=== PATIENT | female | born 1975 | race Caucasian/White ===

== ENCOUNTER 2024-04-10 00:51 | Observation (INO) ==
[2024-04-10 01:07] VITALS: TEMP 98.2
[2024-04-10] MEDS: FAMOTIDINE 20MG IV PUSH 20 MG/5 ML SYR IV STA (01:14)
[2024-04-10] MEDS: DICYCLOMINE HCL 10 MG/ML 2 ML AMP/VIAL IM ONE (01:15)
[2024-04-10] MEDS: ONDANSETRON INJ 2 MG/ML 2 ML VIAL IV STA (01:15)
[2024-04-10] MEDS: SODIUM CHLORIDE 0.9% 1,000 ML IV STA (01:15)
--- NOTE | 2024-04-10 01:17 | Emergency Department Note ---
History of Present Illness General Chief complaint: Abdominal Pain Stated complaint: AB PAIN Time Seen by Provider: 04/10/24 00:55 History of Present Illness Maximum Pain Intensity: 10 This 48-year-old female who does not routinely see the family doctor presents the ER complaint abdominal pain and intermittent tingling's for the past several days. She has a history of alcoholism. Last drink was Sunday. Since then she has had nausea and vomiting and not feeling well. Patient denies chest pain, dyspnea, fevers, cough, congestion. Patient has been to rehab in the past. No history of withdrawal seizures. No delusions or hallucinations. Home Medications Medication Instructions Recorded Confirmed Type doxycycline monohydrate 100 mg 100 mg PO UD 04/10/24 04/10/24 History capsule metronidazole 0.75 % topical cream 1 applic topical BID 04/10/24 04/10/24 History propranolol 20 mg tablet 20 mg PO TID PRN Anxiety 04/10/24 04/10/24 History zolpidem 12.5 mg tablet,extended 12.5 mg PO HS PRN Insomnia 04/10/24 04/10/24 History release,multiphase Allergies Allergy/AdvReac Type Severity Reaction Status Date / Time No Known Allergies Allergy Unverified 04/10/24 03:28 Past Med/Surg History Problem List (Updated 04/10/24 @ 04:45 by Corina Roldan PA-C) Hepatic steatosis (Acute) Coagulopathy Alcohol abuse Abnormal LFTs Abdominal pain, acute (Acute) Hypokalemia (Acute) Hypomagnesemia (Acute) Social History Smoking Status: Former smoker Hx Alcohol Use: Yes Hx Substance Use: No Preferred Language: Armenian Communication Ability: Effective Finisher Hand Required: No Beliefs That Will Affect Care: None Current Living Situation: Alone Feels Safe at Home: Yes Safety Concerns: Feels Safe At This Time Review of Systems A total of 10 systems reviewed and were otherwise negative Physical Exam Vital Signs Vital Signs - 24 hr 04/10/24 01:05 04/10/24 01:05 04/10/24 01:07 Temperature 36.8 C Temperature Source Oral Pulse Rate 96 H 102 H Respiratory Rate 17 Respiratory Effort / Characteristics Non-Labored Spontaneous Respiratory Depth Normal Blood Pressure 134/101 H Blood Pressure Mean 112 Pulse Oximetry 97 98 Oxygen Delivery Method Room Air Room Air Sepsis Recent Fever Within 48 Hours No Sepsis New/Unexplained Change in Mental Status No Sepsis Action Taken by Nursing No Action Required VITALS: Vitals are noted on the nurse's note and reviewed by myself. Vital signs stable. GENERAL: Pleasant patient, in no acute distress, nondiaphoretic, well-developed well-nourished. SKIN: Capillary reflex less than 2 seconds. HEENT: Normocephalic. PERRLA. Mild icterus, EOMI. Nares patent. Mucous membranes moist. Neck is supple without nuchal rigidity. HEART: Regular rate and rhythm LUNGS: Clear to auscultation bilaterally without wheezes, rales or rhonchi. No retractions or accessory muscle use. ABDOMEN: Positive bowel sounds x 4. Normal tympanic percussion. Soft, tender to palpation mid abdomen, without masses or organomegaly. Heredia sign negative. No guarding or rebound tenderness. no CVA tenderness MUSCULOSKELETAL: No gross musculoskeletal defects. NEURO: Patient was alert and oriented to person place and time. No focal neurological deficits. Course Administered Medications Discontinued Medications Dicyclomine HCl (Dicyclomine Hcl 10 Mg/Ml 2 Ml Amp/Vial) 20 mg IM NOW ONE Stop: 04/10/24 01:07 Last Admin: 04/10/24 01:15 Dose: 20 mg Documented By: JUSTIN Sodium Chloride (Nss) 1,000 mls @ 999 mls/hr IV .Q1H1M STA Stop: 04/10/24 02:06 Last Infusion: 04/10/24 02:17 Dose: Infused Documented By: Admin: 04/10/24 01:15 Dose: 999 mls/hr Documented By: JUSTIN Famotidine (Pepcid 20mg Iv Push) 20 mg in 5 mls @ 2.5 mls/min IV NOW STA Stop: 04/10/24 01:07 Last Admin: 04/10/24 01:14 Dose: 2.5 mls/min Documented By: JUSTIN Multivitamins 10 ml/ Thiamine HCl 100 mg/ Folic Acid 1 mg/Sodium Chloride 1,011.2 mls @ 500 mls/hr IV .Q2H2M ONE Stop: 04/10/24 03:25 Last Admin: 04/10/24 02:50 Dose: 500 mls/hr Documented By: JUSTIN Magnesium Sulfate/Dextrose (Magnesium Sulfate / D5w) 1 gm in 100 mls @ 100 mls/hr IV Q1H TIM Stop: 04/10/24 03:47 Last Infusion: 04/10/24 04:18 Dose: Infused Documented By: Admin: 04/10/24 03:14 Dose: 100 mls/hr Documented By: Infusion: 04/10/24 03:12 Dose: Infused Documented By: Admin: 04/10/24 02:12 Dose: 100 mls/hr Documented By: UJSTIN Ioversol (Optiray 320 100ml) 100 ml IV ONCE ONE Stop: 04/10/24 02:06 Last Admin: 04/10/24 02:06 Dose: 93 ml Documented By: CRYS Miscellaneous Information (Patient's Allergy Info Needs Entered) 1 each N/A NOW STA Stop: 04/10/24 03:17 Last Admin: 04/10/24 03:29 Dose: Not Given Documented By: JUSTIN Ondansetron HCl (Ondansetron Inj 2 Mg/Ml 2 Ml Vial) 4 mg IV NOW STA Stop: 04/10/24 01:07 Last Admin: 04/10/24 01:15 Dose: 4 mg Documented By: JUSTIN Potassium Chloride (Potassium Chloride Crtab 20 Meq Tabcr) 40 meq PO NOW STA Stop: 04/10/24 01:48 Last Admin: 04/10/24 02:14 Dose: 40 meq Documented By: JUSTIN Medical Decision Making Medical Records Attestation: I reviewed the patient's medical records. Home Medications Current Medication List: was personally reviewed by me Laboratory Data Attestation: I reviewed the patient's lab results. 04/10/24 01:00 04/10/24 01:00 Lab Results 04/10/24 04/10/24 Range/Units 01:00 03:02 WBC 16.96 H (4.8-10.8) K/ul RBC 3.72 L (4.20-5.40) M/uL Hgb 13.3 (12.0-16.0) g/dl Hct 37.9 (37.0-47.0) % MCV 101.9 H (80.0-100.0) fL MCH 35.8 H (25.0-34.0) pg MCHC 35.1 (32.0-36.0) g/dL RDW Std Deviation 55.6 H (36.4-46.3) fL RDW Coeff of Cristel 14.9 H (11.5-14.5) % Plt Count 255 (130-400) K/uL MPV 10.5 (9.4-12.4) fL Immature Gran % (Auto) 0.5 % Neut % (Auto) 79.7 % Lymph % (Auto) 11.9 % [place] % (Auto) 6.3 % Eos % (Auto) 1.1 % Baso % (Auto) 0.5 % Neut # (Auto) 13.51 H (1.40-6.50) K/uL Lymph # (Auto) 2.02 (1.20-3.40) K/uL [place] # (Auto) 1.07 H (0.11-0.59) K/uL Eos # (Auto) 0.19 (0.00-0.50) K/uL Baso # (Auto) 0.08 (0.00-0.20) K/uL Immature Gran # (Auto) 0.09 (0.01-0.20) K/uL PT 13.5 H (9.0-12.0) Seconds INR 1.3 H (0.9-1.1) APTT 27 (21-31) Seconds PTT Ratio 1.0 Sodium 137 (136-145) mmol/L Potassium 3.3 L (3.5-5.1) mmol/L Chloride 94 L (98-107) mmol/L Carbon Dioxide 30 (21-32) mmol/L Anion Gap 13 H (3-11) BUN 4 L (6-23) mg/dl Creatinine 0.77 (0.6-1.2) mg/dl Est Cr Clr Drug Dosing 86.9 ml/min Est GFR ( Amer) 105.8 ml/min Est GFR (Non-Af Amer) 91.3 ml/min BUN/Creatinine Ratio 5.2 L (10-20) Glucose 102 H (70-99(Fasting)) mg/dl Calcium 8.4 L (8.6-10.3) mg/dl Magnesium 0.8 L* (1.7-2.4) mg/dl Total Bilirubin 4.1 H (0.2-1.0) mg/dl AST 156 H (13-39) U/L ALT 48 (7-52) U/L Alkaline Phosphatase 194 H (34-104) U/L Total Creatine Kinase 60 (26-192) U/L Troponin I High Sens 9.6 (0-14) pg/ml Total Protein 7.8 (6.0-8.3) gm/dl Albumin 3.6 (3.4-5.0) gm/dl Globulin 4.2 H (2.5-4.0) gm/dl Albumin/Globulin Ratio 0.9 (0.9-2) Lipase 5 L (11-82) U/L TSH 3.651 (0.300-4.500) uIu/ml HCG, Qual Negative (Negative) Urine Color Dark Yellow Urine Appearance Clear (Clear) Urine pH 7.5 (4.5-7.5) Ur Specific [place] 1.041 H (1.000-1.030) Urine Protein Negative (Negative) Urine Glucose (UA) Negative (Negative) Urine Ketones Negative (Negative) Urine Blood Negative (Negative) Urine Nitrite Negative (Negative) Urine Bilirubin 1+ H (Negative) Urine Urobilinogen Positive H (Negative) Ur Leukocyte Esterase Trace H (Negative) Urine WBC (Auto) 0-5 (0-5) /hpf Urine RBC (Auto) 0-2 (0-2) /hpf U Hyaline Cast (Auto) 0-2 (0-2) /lpf U Epithel Cells (Auto) 3-5 H (0-2) /hpf Urine Bacteria (Auto) None Seen (None Seen) Ethyl Alcohol mg/dL < 10.0 (<10.0) mg/dl Imaging Data Attestation: I personally reviewed and interpreted this imaging study as follows: Radiologist's Impression: Abdomen/Pelvis CT 04/10/24 01:06 Exam(s): CT ABDOMEN + PELVIS With Contrast IV Amt: 93 ML OPTIRAY 320 EXAM: CT Abdomen and Pelvis With Intravenous Contrast CLINICAL HISTORY: Reason for exam: mid abd pain. TECHNIQUE: Axial computed tomography images of the abdomen and pelvis with intravenous contrast. CTDI is 11.21 mGy and DLP is 610.31 mGy-cm. Automated exposure control was utilized for the study. A dose lowering technique was utilized adhering to the principles of ALARA. CONTRAST: Patient received 93 ML OPTIRAY 320 of IV contrast COMPARISON: No relevant prior studies available. FINDINGS: Lung bases: Unremarkable. No mass. No consolidation. ABDOMEN: Liver: Hepatic steatosis. Gallbladder and bile ducts: Unremarkable. No calcified stones. No ductal dilation. Pancreas: Unremarkable. No mass. No ductal dilation. Spleen: Unremarkable. No splenomegaly. Adrenals: Unremarkable. No mass. Kidneys and ureters: Unremarkable. No solid mass. No hydronephrosis. Stomach and bowel: Unremarkable. No obstruction. No mucosal thickening. PELVIS: Appendix: No findings to suggest acute appendicitis. Bladder: Unremarkable. No mass. Reproductive: Unremarkable as visualized. ABDOMEN and PELVIS: Intraperitoneal space: Mild free fluid in the pelvis. No free air. Bones/joints: No acute fracture. No dislocation. Soft tissues: Unremarkable. Vasculature: Unremarkable. No abdominal aortic aneurysm. Lymph nodes: Unremarkable. No enlarged lymph nodes. IMPRESSION: Hepatic steatosis. No free fluid in the pelvis, which may indicate mild ascites. Recommend LFTs. Electronically signed by: Damian De Oliveira MD 04/10/24 04:40 AM MDM Narrative Prior records/ancillary studies reviewed. Triage Nursing notes reviewed. Additional history obtained from nursing. The patient's history was concerning for abdominal pain. Differential diagnosis: Etiologies such as appendicitis, diverticulitis, cirrhosis, alcoholism, PUD, biliary pathology, UTI, pancreatitis, obstruction, mesenteric ischemia, aortic pathology, infections, inflammatory bowel disease, renal colic, as well as others were entertained. Physical examination findings: As above. ER treatment provided: An order was placed for continuous cardiac monitoring. The monitor shows a rate of 60-100 with a sinus rhythm per my Independent interpretation. IV fluids, banana bag, Pepcid, Bentyl Magnesium and potassium were replaced On reassessment the patient felt better. Diagnostics interpreted by me: ECG: Ordered for shakiness EKG: Poor baseline, normal sinus, normal intervals, no acute ST-T wave changes. Impression sinus tachycardia 103 independently interpreted by myself The labs Independently Interpreted by myself revealed leukocytosis, critical low magnesium, hypokalemia Imaging studies: CT was reviewed and read by radiology as above Consultation: A consultation was placed with the hospitalist. The case was discussed and diagnostics were reviewed. The patient was evaluated in the ER for further treatment. Exam and history seem consistent with electrolyte abnormalities most likely related to alcoholism. Patient's magnesium was critically low. She was started on IV magnesium. Potassium was replaced. Medicine is consulted and the case is discussed. She will be admitted to the medical service for further evaluation and treatment. By the evaluation outlined above emergent etiologies such as appendicitis, diverticulitis, PUD, biliary pathology, UTI, pancreatitis, obstruction, mesenteric ischemia, aortic pathology, infections, inflammatory bowel disease, renal colic, as well as others were deemed relatively unlikely. The pt informed about the findings as listed above. All questions were answered and pleased with the treatment. The chart was completed utilizing [employer] Speech voice recognition software. Grammatical errors, random word insertions, pronoun errors, and incomplete sentences are an occassional consequence of this system due to software limitations, ambient noise, and hardware issues. Any formal questions or concerns about the content, text, or information contained within the body of this dictation should be directly addressed to the physician shipping assistant for clarification. Impression & Plan Hypomagnesemia, Hypokalemia, Abdominal pain, acute, Hepatic steatosis Discharge Plan Visit Data Chief Complaint: Abdominal Pain Stated Complaint: AB PAIN ED Provider: Byron Silvestre ED Midlevel Provider: Corina Roldan Discharge Problem: Hypomagnesemia, Hypokalemia, Abdominal pain, acute, Hepatic steatosis Patient Disposition: Admitted As Inpatient Condition: Fair Discharge Instructions Interventions: ED Discharge Assessment Last Done: 04/10/24 03:19
[2024-04-10 01:34] LABS: Basophils # (auto) 0.08 K/uL (0.00-0.20); Basophils % (auto) 0.5 %; Eosinophils # (auto) 0.19 K/uL (0.00-0.50); Eosinophils % (auto) 1.1 %; Hematocrit (blood only) 37.9 % (37.0-47.0); Hemoglobin 13.3 g/dl (12.0-16.0); Immature Granulocytes # (auto) 0.09 K/uL (0.01-0.20); Immature Granulocytes % (auto) 0.5 %; Lymphocytes # (auto) 2.02 K/uL (1.20-3.40); Lymphocytes % (auto) 11.9 %; Mean Corpuscular Hemoglobin 35.8 pg (25.0-34.0); Mean Corpuscular Hgb Conc 35.1 g/dL (32.0-36.0); Mean Corpuscular Volume 101.9 fL (80.0-100.0); Mean Platelet Volume 10.5 fL (9.4-12.4); Monocytes # (auto) 1.07 K/uL (0.11-0.59); Monocytes % (auto) 6.3 %; Neutrophils # (auto) 13.51 K/uL (1.40-6.50); Neutrophils % (auto) 79.7 %; Platelet Count 255 K/uL (130-400); RDW Coefficient of Variation 14.9 % (11.5-14.5); RDW Standard Deviation 55.6 fL (36.4-46.3); Red Blood Count 3.72 M/uL (4.20-5.40); White Blood Count 16.96 K/ul (4.8-10.8)
[2024-04-10 01:37] LABS: BUN Creatinine Ratio 5.2 (10-20); Calcium 8.4 mg/dl (8.6-10.3); Creatinine Clr Calc Pharmacy 86.9 ml/min; Est GFR (African American) 105.8 ml/min; Est GFR (Non-African American) 91.3 ml/min; Potassium 3.3 mmol/L (3.5-5.1)
[2024-04-10 01:43] LABS: Troponin I High Sensitivity 9.6 pg/ml (0-14)
[2024-04-10 01:53] LABS: Albumin Globulin Ratio 0.9 (0.9-2); Albumin Level 3.6 gm/dl (3.4-5.0); Bilirubin,Total 4.1 mg/dl (0.2-1.0); Globulin 4.2 gm/dl (2.5-4.0); Magnesium 0.8 mg/dl (1.7-2.4); Thyroid Stimulating Hormone 3.651 uIu/ml (0.300-4.500); Total Protein 7.8 gm/dl (6.0-8.3)
[2024-04-10] MEDS: OPTIRAY 320 100ml IV ONE (02:06)
[2024-04-10] MEDS: MAGNESIUM SULFATE / D5W 1 GM/100 ML BAG IV SCH ×2 (02:12→04:54)
[2024-04-10] MEDS: POTASSIUM CHLORIDE CRTAB 20 MEQ TABCR PO STA (02:14)
[2024-04-10] MEDS: MULTI-VITAMIN INFUSION 10 ML, THIAMINE HCL 100 MG, FOLIC ACID 1 MG in SODIUM CHLORIDE 0... IV ONE (02:50)
--- NOTE | 2024-04-10 03:04 | History & Physical Report ---
Date of Service April 10, 2024 Assessment & Plan (1) Abdominal pain, acute: (2) Abnormal LFTs: (3) Alcohol abuse: (4) Hypokalemia: (5) Hypomagnesemia: (6) Coagulopathy: Plan Acute abdominal pain, right upper quadrant and epigastric/abnormal LFTs- Total bilirubin 4.1, AST 156, alkaline phosphatase 194 CT scan abdomen and pelvis ordered and pending, with liver appearing to have abnormal architecture Suspect symptoms are related to alcohol ingestion and possible alcoholic liver disease Repeat laboratories in a.m. N.p.o. except medications Pantoprazole 40 mg IV now, and every morning Zofran 4 mg IV every 6 hours as needed Further interventions and/or workup pending interpretation of CT Hypomagnesemia/hypokalemia- Magnesium 0.8 on admission, will get a total of 4 g of magnesium sulfate IV, and recheck laboratories around 10 AM Potassium 3.3 on admission, received Klor-Con 40 mEq p.o. NSS + KCl 20 mEq at 100 mL/h x 1 L Repeat BMP at 10 AM Alcohol abuse- Last intake of alcohol was 5 days ago Received banana bag in the ED and 1 L normal saline Thiamine 100 mg p.o. every morning Folic acid 1 mg p.o. every morning AWSS protocol, expect patient to be outside the window of intervention Coagulopathy- INR 1.3 History of Present Illness Chief Complaint: The patient presents to the emergency department with complaint of right upper quadrant and epigastric area pain, that initially began with pain on her left side earlier in the day. She does also report intermittent tingling and extremities Primary Care Provider: NO PCP The patient is a 48-year-old female with a past medical history including alcoholism, rosacea, insomnia, and anxiety. She presents to the emergency department with complaint of acute right upper quadrant and epigastric area abdominal pain, that she reports initially had been on her left side. She does not have any associated nausea or vomiting. She also reports that she has some periodic pain across her suprapubic area, but this is not associated with any change in urinary, such as urinary frequency or urgency or dysuria. Allergies Allergy/AdvReac Type Severity Reaction Status Date / Time No Known Allergies Allergy Unverified 04/10/24 03:28 Home Medications Medication Instructions Recorded Confirmed Type doxycycline monohydrate 100 mg 100 mg PO UD 04/10/24 04/10/24 History capsule metronidazole 0.75 % topical cream 1 applic topical BID 04/10/24 04/10/24 History propranolol 20 mg tablet 20 mg PO TID PRN Anxiety 04/10/24 04/10/24 History zolpidem 12.5 mg tablet,extended 12.5 mg PO HS PRN Insomnia 04/10/24 04/10/24 History release,multiphase Past Med/Surg History Problem List (Updated 04/10/24 @ 04:33 by Gumaro Frank MD) Coagulopathy Alcohol abuse Abnormal LFTs Abdominal pain, acute (Acute) Hypokalemia (Acute) Hypomagnesemia (Acute) Social History Smoking Status: Former smoker Hx Alcohol Use: Yes Hx Substance Use: No Preferred Language: Amharic Communication Ability: Effective Feller Operator Required: No Beliefs That Will Affect Care: None Current Living Situation: Alone Feels Safe at Home: Yes Review of Systems Review of Systems: The patient denies chest pain, palpitations, shortness of breath, dyspnea on exertion, cough, lower extremity swelling, sore throat, fevers, chills, sweats, weight change, fatigue, nausea, vomiting, diarrhea , constipation, blood in urine or stool, dysuria, urinary frequency or urgency, lightheadedness, dizziness, headache, memory loss, loss of consciousness, rash, abnormal bruising or bleeding, imbalance, focal or generalized weakness, generalized arthralgias or myalgias, back or neck pain, or night sweats. The review of systems is otherwise negative other than for that already noted above, and at least 10 systems have been reviewed. Physical Exam Physical Exam: The patient is awake, alert and oriented 3, well developed and well nourished, normocephalic and atraumatic, lying in bed and in no acute distress. HEENT--PERRL, EOMI, mucous membranes and oropharynx mildly dry. Neck--supple. No JVD. No bruits. Thyroid normal, trachea midline, no adenopathy. Heart--normal S1 and S2. No murmurs, rubs or gallops. Lungs--clear bilaterally, no respiratory distress, no accessory muscle use. Abdomen--normal bowel sounds and soft. Nontender. Nondistended, no hernias or masses, no organomegaly. Extremities--no cyanosis or clubbing. No edema. There are good distal pulses b/l. Dermatologic--normal skin turgor, normal color, no abnormal lymph nodes, no rash. Neurologic--cranial nerves II through XII grossly intact. Rheumatologic--normal range of motion. Psychiatric--normal affect. Results & Data Results & Data Vital Signs (Past 12 Hours) Vital Signs Temp Pulse Resp BP Pulse Ox O2 Del Method 04/10/24 01:07 98 Room Air 04/10/24 01:05 102 H 04/10/24 01:05 36.8 C 96 H 17 134/101 H 97 Room Air Laboratory Results Laboratory Results WBC 16.96 K/ul (4.8-10.8) H 04/10/24 01:00 RBC 3.72 M/uL (4.20-5.40) L 04/10/24 01:00 Hgb 13.3 g/dl (12.0-16.0) 04/10/24 01:00 Hct 37.9 % (37.0-47.0) 04/10/24 01:00 MCV 101.9 fL (80.0-100.0) H 04/10/24 01:00 MCH 35.8 pg (25.0-34.0) H 04/10/24 01:00 MCHC 35.1 g/dL (32.0-36.0) 04/10/24 01:00 RDW Std Deviation 55.6 fL (36.4-46.3) H 04/10/24 01:00 RDW Coeff of Cristel 14.9 % (11.5-14.5) H 04/10/24 01:00 Plt Count 255 K/uL (130-400) 04/10/24 01:00 MPV 10.5 fL (9.4-12.4) 04/10/24 01:00 Immature Gran % (Auto) 0.5 % 04/10/24 01:00 Neut % (Auto) 79.7 % 04/10/24 01:00 Lymph % (Auto) 11.9 % 04/10/24 01:00 [place] % (Auto) 6.3 % 04/10/24 01:00 Eos % (Auto) 1.1 % 04/10/24 01:00 Baso % (Auto) 0.5 % 04/10/24 01:00 Neut # (Auto) 13.51 K/uL (1.40-6.50) H 04/10/24 01:00 Lymph # (Auto) 2.02 K/uL (1.20-3.40) 04/10/24 01:00 [place] # (Auto) 1.07 K/uL (0.11-0.59) H 04/10/24 01:00 Eos # (Auto) 0.19 K/uL (0.00-0.50) 04/10/24 01:00 Baso # (Auto) 0.08 K/uL (0.00-0.20) 04/10/24 01:00 Immature Gran # (Auto) 0.09 K/uL (0.01-0.20) 04/10/24 01:00 PT 13.5 Seconds (9.0-12.0) H 04/10/24 01:00 INR 1.3 (0.9-1.1) H 04/10/24 01:00 APTT 27 Seconds (21-31) 04/10/24 01:00 PTT Ratio 1.0 04/10/24 01:00 Sodium 137 mmol/L (136-145) 04/10/24 01:00 Potassium 3.3 mmol/L (3.5-5.1) L 04/10/24 01:00 Chloride 94 mmol/L (98-107) L 04/10/24 01:00 Carbon Dioxide 30 mmol/L (21-32) 04/10/24 01:00 Anion Gap 13 (3-11) H 04/10/24 01:00 BUN 4 mg/dl (6-23) L 04/10/24 01:00 Creatinine 0.77 mg/dl (0.6-1.2) 04/10/24 01:00 Est Cr Clr Drug Dosing 86.9 ml/min 04/10/24 01:00 Est GFR ( Amer) 105.8 ml/min 04/10/24 01:00 Est GFR (Non-Af Amer) 91.3 ml/min 04/10/24 01:00 BUN/Creatinine Ratio 5.2 (10-20) L 04/10/24 01:00 Glucose 102 mg/dl (70-99(Fasting)) H 04/10/24 01:00 Calcium 8.4 mg/dl (8.6-10.3) L 04/10/24 01:00 Magnesium 0.8 mg/dl (1.7-2.4) L* 04/10/24 01:00 Total Bilirubin 4.1 mg/dl (0.2-1.0) H 04/10/24 01:00 AST 156 U/L (13-39) H 04/10/24 01:00 ALT 48 U/L (7-52) 04/10/24 01:00 Alkaline Phosphatase 194 U/L (34-104) H 04/10/24 01:00 Total Creatine Kinase 60 U/L (26-192) 04/10/24 01:00 Troponin I High Sens 9.6 pg/ml (0-14) 04/10/24 01:00 Total Protein 7.8 gm/dl (6.0-8.3) 04/10/24 01:00 Albumin 3.6 gm/dl (3.4-5.0) 04/10/24 01:00 Globulin 4.2 gm/dl (2.5-4.0) H 04/10/24 01:00 Albumin/Globulin Ratio 0.9 (0.9-2) 04/10/24 01:00 Lipase 5 U/L (11-82) L 04/10/24 01:00 TSH 3.651 uIu/ml (0.300-4.500) 04/10/24 01:00 HCG, Qual Negative (Negative) 04/10/24 01:00 Urine Color Dark Yellow 04/10/24 03:02 Urine Appearance Clear (Clear) 04/10/24 03:02 Urine pH 7.5 (4.5-7.5) 04/10/24 03:02 Ur Specific [place] 1.041 (1.000-1.030) H 04/10/24 03:02 Urine Protein Negative (Negative) 04/10/24 03:02 Urine Glucose (UA) Negative (Negative) 04/10/24 03:02 Urine Ketones Negative (Negative) 04/10/24 03:02 Urine Blood Negative (Negative) 04/10/24 03:02 Urine Nitrite Negative (Negative) 04/10/24 03:02 Urine Bilirubin 1+ (Negative) H 04/10/24 03:02 Urine Urobilinogen Positive (Negative) H 04/10/24 03:02 Ur Leukocyte Esterase Trace (Negative) H 04/10/24 03:02 Urine WBC (Auto) 0-5 /hpf (0-5) 04/10/24 03:02 Urine RBC (Auto) 0-2 /hpf (0-2) 04/10/24 03:02 U Hyaline Cast (Auto) 0-2 /lpf (0-2) 04/10/24 03:02 U Epithel Cells (Auto) 3-5 /hpf (0-2) H 04/10/24 03:02 Urine Bacteria (Auto) None Seen (None Seen) 04/10/24 03:02 Ethyl Alcohol mg/dL < 10.0 mg/dl (<10.0) 04/10/24 01:00 Code Status & VTE Plan Code Status Full code VTE Prophylaxis Plan VTE Prophylaxis will be ordered: Yes PG Care Time/CCT Total # of Minutes Spent Total Time Spent with Patient: Total time spent is greater than 50% in coordination of care (as documented) at patient's floor/unit and/or counseling patient: Coding Level of Care Code 68885 INT INP/OBS CARE 3/75MIN Diagnoses Abdominal pain, acute R10.9 Abnormal LFTs R79.89 Alcohol abuse F10.10 Hypokalemia E87.6 Hypomagnesemia E83.42 Coagulopathy D68.9
[2024-04-10] MEDS ORDERED: Ativan IV Alcohol Withdrawal--Active Protocol IV PRN (03:18)
[2024-04-10] MEDS ORDERED: LORazepam 2 MG/1 ML VIAL IV PRN ×3 (03:18)
[2024-04-10] MEDS: Patient's ALLERGY Info needs ENTERED STA (03:29)
[2024-04-10 03:32] LABS: Appearance Urine Clear (Clear); Bacteria Urine Automated None Seen (None Seen); Bilirubin Urine 1+ (Negative); Blood Urine Negative (Negative); Cast Urine Automated 0-2 /lpf (0-2); Color Urine Dark Yellow; Glucose Urine UA Negative (Negative); Ketones Urine Negative (Negative); Leukocyte Esterase Urine Trace (Negative); Nitrite Urine Negative (Negative); Protein Urine Negative (Negative); RBC Urine Automated 0-2 /hpf (0-2); Specific Gravity Urine 1.041 (1.000-1.030); Urobilinogen Urine Positive (Negative); WBC Urine Automated 0-5 /hpf (0-5); pH Urine 7.5 (4.5-7.5)
[2024-04-10 03:35] LABS: INR 1.3 (0.9-1.1); Partial Thromboplastin Time 27 Seconds (21-31); Prothrombin Time 13.5 Seconds (9.0-12.0)
[2024-04-10 03:42] LABS: Pregnancy Test, Serum Negative (Negative)
[2024-04-10] MEDS ORDERED: ONDANSETRON INJ 2 MG/ML 2 ML VIAL IV PRN (04:36)
--- NOTE | 2024-04-10 04:41 | CT Scan Report ---
Exam(s): CT ABDOMEN + PELVIS With Contrast IV Amt: 93 ML OPTIRAY 320 EXAM: CT Abdomen and Pelvis With Intravenous Contrast CLINICAL HISTORY: Reason for exam: mid abd pain. TECHNIQUE: Axial computed tomography images of the abdomen and pelvis with intravenous contrast. CTDI is 11.21 mGy and DLP is 610.31 mGy-cm. Automated exposure control was utilized for the study. A dose lowering technique was utilized adhering to the principles of ALARA. CONTRAST: Patient received 93 ML OPTIRAY 320 of IV contrast COMPARISON: No relevant prior studies available. FINDINGS: Lung bases: Unremarkable. No mass. No consolidation. ABDOMEN: Liver: Hepatic steatosis. Gallbladder and bile ducts: Unremarkable. No calcified stones. No ductal dilation. Pancreas: Unremarkable. No mass. No ductal dilation. Spleen: Unremarkable. No splenomegaly. Adrenals: Unremarkable. No mass. Kidneys and ureters: Unremarkable. No solid mass. No hydronephrosis. Stomach and bowel: Unremarkable. No obstruction. No mucosal thickening. PELVIS: Appendix: No findings to suggest acute appendicitis. Bladder: Unremarkable. No mass. Reproductive: Unremarkable as visualized. ABDOMEN and PELVIS: Intraperitoneal space: Mild free fluid in the pelvis. No free air. Bones/joints: No acute fracture. No dislocation. Soft tissues: Unremarkable. Vasculature: Unremarkable. No abdominal aortic aneurysm. Lymph nodes: Unremarkable. No enlarged lymph nodes. IMPRESSION: Hepatic steatosis. No free fluid in the pelvis, which may indicate mild ascites. Recommend LFTs. Electronically signed by: Damian De Oliveira MD 04/10/24 04:40 AM
[2024-04-10] MEDS: NSS + 20MEQ KCL 20 MEQ/1,000 ML BAG IV SCH (04:54)
[2024-04-10] MEDS: PANTOprazole 40 MG in SYRINGE 0 ML IV ONE (05:59)
[2024-04-10 07:00] LABS: Basophils # (auto) 0.05 K/uL (0.00-0.20); Basophils % (auto) 0.4 %; Eosinophils # (auto) 0.19 K/uL (0.00-0.50); Eosinophils % (auto) 1.5 %; Hematocrit (blood only) 30.1 % (37.0-47.0); Hemoglobin 10.2 g/dl (12.0-16.0); Immature Granulocytes # (auto) 0.09 K/uL (0.01-0.20); Immature Granulocytes % (auto) 0.7 %; Lymphocytes # (auto) 1.44 K/uL (1.20-3.40); Lymphocytes % (auto) 11.7 %; Mean Corpuscular Hemoglobin 35.2 pg (25.0-34.0); Mean Corpuscular Hgb Conc 33.9 g/dL (32.0-36.0); Mean Corpuscular Volume 103.8 fL (80.0-100.0); Mean Platelet Volume 9.7 fL (9.4-12.4); Monocytes # (auto) 0.87 K/uL (0.11-0.59); Monocytes % (auto) 7.1 %; Neutrophils # (auto) 9.69 K/uL (1.40-6.50); Neutrophils % (auto) 78.6 %; Platelet Count 193 K/uL (130-400); RDW Coefficient of Variation 15.1 % (11.5-14.5); RDW Standard Deviation 57.1 fL (36.4-46.3); White Blood Count 12.33 K/ul (4.8-10.8)
[2024-04-10 07:57] LABS: Albumin Globulin Ratio 0.9 (0.9-2); Albumin Level 2.6 gm/dl (3.4-5.0); BUN Creatinine Ratio 3.3 (10-20); Bilirubin,Total 2.7 mg/dl (0.2-1.0); Calcium 6.9 mg/dl (8.6-10.3); Creatinine Clr Calc Pharmacy 111.5 ml/min; Est GFR (African American) 124.9 ml/min; Est GFR (Non-African American) 107.8 ml/min; Globulin 2.8 gm/dl (2.5-4.0); Potassium 3.6 mmol/L (3.5-5.1); Total Protein 5.4 gm/dl (6.0-8.3)
[2024-04-10] MEDS: FOLIC ACID 1 MG TAB PO SCH (08:40)
[2024-04-10] MEDS: THIAMINE HCL 100 MG TAB PO SCH (08:40)
[2024-04-10] MEDS: DOXYCYCLINE HYCLATE 100 MG CAP PO SCH (08:40)
[2024-04-10] MEDS: PANTOprazole 40 MG in SYRINGE 0 ML IV SCH (10:52)
[2024-04-10 10:59] LABS: BUN Creatinine Ratio 5.3 (10-20); C Reactive Protein 2.38 mg/dl (0-0.5); Creatinine Clr Calc Pharmacy 117.4 ml/min; Est GFR (African American) 127.1 ml/min; Est GFR (Non-African American) 109.6 ml/min; Magnesium 1.9 mg/dl (1.7-2.4); Potassium 3.6 mmol/L (3.5-5.1)
--- NOTE | 2024-04-10 14:12 | Discharge Summary ---
Date of Service April 10, 2024 Admission HPI Per Admitting Provider The patient is a 48-year-old female with a past medical history including alcoholism, rosacea, insomnia, and anxiety. She presents to the emergency department with complaint of acute right upper quadrant and epigastric area abdominal pain, that she reports initially had been on her left side. She does not have any associated nausea or vomiting. She also reports that she has some periodic pain across her suprapubic area, but this is not associated with any change in urinary, such as urinary frequency or urgency or dysuria. Admission Exam Per Admitting Provider The patient is awake, alert and oriented 3, well developed and well nourished, normocephalic and atraumatic, lying in bed and in no acute distress. HEENT--PERRL, EOMI, mucous membranes and oropharynx mildly dry. Neck--supple. No JVD. No bruits. Thyroid normal, trachea midline, no adenopathy. Heart--normal S1 and S2. No murmurs, rubs or gallops. Lungs--clear bilaterally, no respiratory distress, no accessory muscle use. Abdomen--normal bowel sounds and soft. Nontender. Nondistended, no hernias or masses, no organomegaly. Extremities--no cyanosis or clubbing. No edema. There are good distal pulses b/l. Dermatologic--normal skin turgor, normal color, no abnormal lymph nodes, no rash. Neurologic--cranial nerves II through XII grossly intact. Rheumatologic--normal range of motion. Psychiatric--normal affect. Principal Diagnosis alcohol-associated steatohepatitis Discharge Exam Constitutional- A&Ox4, not appearing in acute distress HEENT- mild scleral icterus, EOM intact, no pharyngeal erythema cardiovascular- RRR, no murmurs on auscultation pulmonary- good air movement throughout, clear to auscultation b/l, no wheezes/rales/rhonchi GI- no ascites, nonjaundiced; slightly hyperactive bowel sounds; hepatomegaly on palpation, soft, no guarding, tender to palpation to RUQ skin- nonjaundiced, facial rash on b/l cheeks (known rosacea) neuro- no tremor, no asterixis, walks with steady gait psych- mildly pressured speech, no hallucinations, no delusions Discharge Data Allergies Allergy/AdvReac Type Severity Reaction Status Date / Time No Known Allergies Allergy Unverified 04/10/24 03:28 Consultations 04/10/24 02:47 ED Decision to Admit Stat Ordered Studies 04/10/24 01:06 CT abd pelvis IV con only Stat Hospital Course (1) Alcoholic steatohepatitis: (2) Abdominal pain, acute: (3) Abnormal LFTs: (4) Alcohol abuse: (5) Hypokalemia: (6) Hypomagnesemia: (7) Coagulopathy: Plan alcohol-associated steatohepatitis (fatty liver disease) - abdominal pain and elevation of LFTs following recent period of increased alcohol intake after stressful breakup - fatty infiltration of liver likely secondary to chronic significant alcohol intake Acute abdominal pain, right upper quadrant and epigastric Total bilirubin 4.1, AST 156, alkaline phosphatase 194 - all downtrending per 04/10/[address] scan abdomen and pelvis: hepatomegaly, fatty infiltration Suspect symptoms are related to alcohol ingestion and possible alcohol- associated liver disease Pantoprazole 40 mg IV Zofran 4 mg IV every 6 hours as needed Hypomagnesemia/hypokalemia- - received both Mg and K repletion in addition to IV fluids both magnesium and potassium repleted by 04/10/24 AM Alcohol abuse- Last intake of alcohol was 6 days ago (Sunday04/04/24) Received banana bag in the ED and 1 L normal saline Thiamine 100 mg p.o. every morning Folic acid 1 mg p.o. every morning AWSS protocol, expect patient to be outside the window of intervention Coagulopathy- INR 1.3 Total Time Total Time Spent Total Time Spent (In Minutes): <30 Discharge Plan Discharge Items Patient Disposition: Home - Self-Care Reason For Visit: ABD PAIN,HYPOMAGNESEMIA,HYPOKALEMIA,ABNL LFT'S Discharge Diagnosis: exacerbation of alcohol-associated steatohepatitis (fatty liver disease) Condition on Discharge: Fair Activity: Per Instructions section Non-emergency contact: Therapist Call non-emergency contact if: you have any medication questions and your symptoms worsen Follow-up/Referrals: PCP,NO [Primary Care Provider] - Diet: Regular Addtl Attending Provider Instructions: You came to [facility] ED for right upper quadrant and epigastric abdominal pain with inability to keep food or liquids down since last Sunday04/04/24. Since you have a history of significant alcohol consumption, you were placed on AWSS (alcohol withdrawal severity scale) protocol, and given scheduled thiamine (vitamin B1) and folate (vitamin b9), with Ativan (lorazepam, a benzodiazepine) as needed for withdrawal symptoms. In the ED, you were given saline solution IV for hydration, zofran (ondansetron) for nausea/vomiting, as well as magnesium and potassium for electrolyte repletion. On CT scan of your abdomen & pelvis, the main significant finding was that your liver is enlarged and appears to have fatty infiltration, which is most likely related to your alcohol use. Your LFTs (liver function tests) were also elevated, so this combined with the CT finding leads us to believe you have alcohol-associated fatty liver disease, also known as alcohol-associated steatohepatitis. Based on your history, it seems that you use alcohol particularly much in times of stress. We encourage you to find other ways to manage your stress - things that will both help keep your mind off of your stressors and are beneficial to your overall health, such as physical activity like walking. Walking is a great way to clear your mind and improve cardiovascular health at the same time. Also, engaging in any hobbies or interests you have will help to keep your mind off of stressors while positively stimulating your body and/or mind. We encourage you to continue following with your therapist for mental health continuity. We also strongly recommend that you establish care with a primary care provider in your home location so that your condition can be monitored and treated as needed. Pending Studies at Discharge: No Stand-Alone Forms: My [facility] Medications and DC Order Prescriptions: New thiamine HCl (vitamin B1) 100 mg tablet 100 mg PO DAILY Qty: 30 3RF folic acid 1 mg tablet 1 mg PO DAILY Qty: 30 3RF Continued doxycycline monohydrate 100 mg capsule 100 mg PO UD metronidazole 0.75 % cream 1 applic TOPICAL BID Rx Instructions: inflammatory ROSACEA of the face propranolol 20 mg tablet 20 mg PO TID PRN (Reason: Anxiety) zolpidem 12.5 mg tablet,ext release multiphase 12.5 mg PO HS PRN (Reason: Insomnia) Discharge Orders: Discharge Order (Routine); Ordered 04/10/24 Ordered By: Mario High/Other Patient Handouts: Alcohol Addiction, Alcoholism: Getting Help, Addiction Recovery Relapse Admission Data Admit Date/Time: 04/10/24 03:03 Attending Provider: Misael Galan Admit Provider: Gumaro Frank Primary Care Provider: PCP,NO Other Providers: Gumaro Frank Other Interventions: Discharge Summary Assessment (RN) Last Done: 04/10/24 15:28 Supervising Physician Co-Signing Physician Notes I personally examined the patient and verified all cabrera points of history and exam, discussed case, and agree with decision making with Dr Pearson Feeling better. Eating well. Feels up to getting out of the hospital. Vitals noted, in general she is awake and alert pleasant no distress. HEENT normocephalic atraumatic mucous membranes moist. Breathing unlabored no accessory muscle use good effort. Skin without rashes pallor or icterus. Neuro without focal deficits. Abdominal painmost likely alcoholic gastritis/duodenitis versus less likely a bit of liver related pain from fatty liver. Either way improving and safe for home. Can utilize famotidine as needed. Main treatment will be alcohol cessation. We discussed that this likely tags back to anxiety and depression. She has made a couple of major life changes breaking up with her boyfriend and getting a new jobwe discussed rolling this into a more positive overall change. Discussed getting back to walking and riding her horse. Discussed continue with counseling. EtOH liver disease - discussed concerning - discussed cessation. macrocytic anemia - B12 normal. can definitely consider MMA/homocysteine or even just empiric B12 replacement as outpt. thiamine/folate/EtOH cessation for now otherwise as above Resident Activity Tracking Resident Involvement: Resident Care Provided Care Provided: Adult Hospital Medicine
--- NOTE | 2024-04-10 14:34 | Electrocardiogram Report ---
Test Reason : Blood Pressure : */* mmHG Vent. Rate : 103 BPM Atrial Rate : 103 BPM P-R Int : 130 ms QRS Dur : 86 ms QT Int : 376 ms P-R-T Axes : 90 23 17 degrees QTcB Int : 492 ms Poor data quality, interpretation may be adversely affected Sinus tachycardia Nonspecific ST and T wave abnormality Abnormal ECG No previous ECGs available Confirmed by Leroy Vieira ([id number]) on 04/10/2024 2:34:39 PM Referred By: REFERRED SELF Confirmed By: Leroy Vieira
[2024-04-10 15:30] VITALS: BP 131/90; PULSE 90; RESP 16; O2SAT 99
--- NOTE | 2024-04-10 19:10 | Billing Data ---
Date of Service April 10, 2024 Coding Level of Care Code 34270 IN/OBS DISCH 30 MIN/LESS
== END 2024-04-10 15:28 | disposition home or self-care (01) ==
LOC: ED 00:51 → EDINP 00:51 → SUATTDRO 03:03 → EDINP 03:19
DX: K70.0 Alcoholic fatty liver; R94.31 Abnormal electrocardiogram [ECG] [EKG]; Z87.891 Personal history of nicotine dependence; E83.42 Hypomagnesemia; F10.10 Alcohol abuse, uncomplicated; R00.0 Tachycardia, unspecified; Y90.9 Presence of alcohol in blood, level not specified; Z79.899 Other long term (current) drug therapy; E87.6 Hypokalemia; D68.9 Coagulation defect, unspecified